=== PATIENT | female | born 1960 ===

== ENCOUNTER → 2020-10-14 11:17 | Outpatient (CLI) | payer OTHER, SELFPAY ==
--- NOTE | 2020-10-14 | DI.MG.S_ITS ---
BILATERAL DIGITAL SCREENING MAMMOGRAM 3D/2D WITH CAD: 10/14/2020 CLINICAL: Routine screening. Family history of breast cancer. Comparison is made to exam dated: 04/23/2019 mammogram - [facility]. There are scattered fibroglandular elements in both breasts. Current study was also evaluated with a Computer Aided Detection (CAD) system. There is a possible new 0.5 cm oval equal density asymmetry in the right breast posterior depth inferior region seen on the mediolateral oblique view only. No other significant masses, calcifications, or other findings are seen in either breast. IMPRESSION: INCOMPLETE: NEEDS ADDITIONAL IMAGING EVALUATION The possible new 0.5 cm oval equal density asymmetry in the right breast is indeterminate. Additional views with possible ultrasound are recommended. This exam was interpreted at Station ID: [id number]. NOTE: For mammograms, a report in lay terms will be sent to the patient. Approximately 15% of breast malignancies will not be visualized mammographically. In the management of a palpable breast mass, a negative mammogram must not discourage biopsy of a clinically suspicious lesion. Electronically Signed By: Emmanuel urbano/lakisha:10/16/2020 08:51:23 letter sent: Additional Imaging Needed ACR BI-RADS Category 0: Incomplete [id number]
== END ==
PROVIDERS: Referring Provider Family Medicine; Visit Provider Family Medicine
DX: Z12.31 Encounter for screening mammogram for malignant neoplasm of breast (principal); Z80.3 Family history of malignant neoplasm of breast
CPT/HCPCS: 77063; 77067

== ENCOUNTER → 2020-10-31 14:19 | Outpatient (CLI) | payer OTHER, SELFPAY ==
--- NOTE | 2020-10-31 14:23 | DI.MG.S_ITS ---
UNILATERAL RIGHT DIGITAL DIAGNOSTIC MAMMOGRAM 3D/2D WITH ADDITIONAL VIEWS: 10/31/2020 CLINICAL: Additional evaluation requested from prior study. Comparison is made to exams dated: 10/14/2020 mammogram - [facility], 04/23/2019 mammogram - [facility], and 04/23/2019 mammogram - [facility] radiology. There are scattered fibroglandular elements in right breast. There is a possible 0.5 cm oval equal density asymmetry in the right breast posterior depth inferior region seen on the mediolateral oblique view only. This is not significantly changed. No other significant masses or calcifications are seen in the breast. IMPRESSION: INCOMPLETE: NEEDS ADDITIONAL IMAGING EVALUATION The possible 0.5 cm oval equal density asymmetry in the right breast is indeterminate. An ultrasound is recommended and is scheduled to immediately follow. This exam was interpreted at Station ID: [id number]. NOTE: For mammograms, a report in lay terms will be sent to the patient. Approximately 15% of breast malignancies will not be visualized mammographically. In the management of a palpable breast mass, a negative mammogram must not discourage biopsy of a clinically suspicious lesion. Electronically Signed By: Sean Camara M.D. jr/:10/31/2020 14:56:06 ACR BI-RADS Category 0: Incomplete [id number]
--- NOTE | 2020-10-31 14:24 | DI.US.S_ITS ---
LIMITED ULTRASOUND OF RIGHT BREAST: 10/31/2020 CLINICAL: Patient returns today to evaluate a focal asymmetry in the right breast. Comparison is made to exams dated: 10/31/2020 mammogram, 10/14/2020 mammogram - [facility], 04/23/2019 mammogram - [facility], 04/23/2019 mammogram - [facility] radiology, 03/04/2018 ultrasound, and 03/04/2018 mammogram - [facility]. Color flow and Doppler ultrasound of the right breast 6-7 o'clock region were performed. Anderson scale images of the real-time examination were reviewed. Cluster of simple and minimally complicated cysts in the right breast at the 6:00 position 6 cm from the nipple, consistent with the mammographic appearance. IMPRESSION: NEGATIVE There is no sonographic evidence of malignancy. Return to annual mammogram screening schedule is recommended. This exam was interpreted at Station ID: [id number]. Electronically Signed By: Sean Camara M.D. jr/:10/31/2020 15:38:12 letter sent: Normal Exam Ultrasound BI-RADS: 1 Negative
== END ==
PROVIDERS: PCP Family Medicine; Referring Provider Family Medicine; Visit Provider Family Medicine
DX: R92.8 Other abnormal and inconclusive findings on diagnostic imaging of breast (principal); N60.01 Solitary cyst of right breast
CPT/HCPCS: 76642; 77065; G0279

== ENCOUNTER 2021-05-20 06:29 | Emergency (ER) | payer OTHER, SELFPAY ==
[2021-05-20] VITALS (10 sets, daily range): BP systolic 129–159; BP diastolic 66–88; PULSE 96–113; RESP 15–29; TEMP 37.8; O2SAT 94–97; BMI 22.6
--- NOTE | 2021-05-20 07:32 | ED_ITS ---
HPI - Chest Pain General Chief Complaint: Chest Pain Stated Complaint: covid positive/coughing chills' Time Seen by Provider: 05/20/21 06:38 Source: patient Mode of arrival: Ambulatory Limitations: no limitations History of Present Illness HPI narrative: Patient is a 60-year-old female history of hypertension presen ting today with probable COVID. She is not vaccinated for COVID her is positive for COVID. His she has cough and body aches. She is having some chest discomfort. She is supposed to have a stress test tomorrow home. She was interested in the vaccine but convinced her otherwise. She has body aches and chest discomfort cough and congestion. Currently oxygen is 94-95% on room air. Her is here as well Related Data Previous Rx's Medication Instructions Recorded levofloxacin 750 mg tablet 750 mg PO DAILY 7 Days tab 05/20/21 Review of Systems Review of Systems Narrative: GENERAL: + fatigue,+ fever,+ body aches HEENT: Denies sinus pain, ear pain, sore throat, difficulty swallowing, neck pain RESPIRATORY: Cough congestion, see HPI CARDIOVASCULAR: Chest discomfort GASTROINTESTINAL: Denies nausea, vomiting, abdominal pain, diarrhea, constipation, melena. : Denies dysuria, frequency, incontinence, hematuria, urinary retention, flank pain. MUSCULOSKELETAL: Denies weakness, joint pain, or bony pain SKIN: No rash, no erythema, no pruritus NEUROLOGIC: Denies weakness, dizziness, headache, numbness, change in speech, confusion PSYCHIATRIC: No concerning psychosocial issues. 12 point review of systems is negative except for those stated above and HPI Patient History Social History Smoking Status: Never smoker Smoking Status: Never smoker alcohol intake frequency: 0-2 drinks per day Substance Use Type: does not use Exam Initial Vital Signs Initial Vital Signs: Vital Signs Pulse Rate 108 H 05/20/21 06:48 Respiratory Rate 16 05/20/21 06:48 Pulse Oximetry 95 05/20/21 06:48 GENERAL: Alert 60-year-old female appears to not feel well in no acute distress. HEENT: Head atraumatic,EOMI, pupils reactive, face symmetric, moist mucous membranes CARDIOVASCULAR: Regular slightly tachycardic no murmur RESPIRATORY: Breath sounds equal bilaterally, no wheezes rales or rhonchi. ABDOMEN: Soft, nontender. Normoactive bowel sounds all 4 quadrants. No guarding or rebound. EXTREMITIES: Normal range of motion, no clubbing or edema. Neurovascularly intact NEUROLOGICAL: Alert and oriented x4.Normal gait and speech. SKIN: Warm, dry, no laceration, no petechiae, no rashes or lesions. Course Orders Ordered: ED Orders 05/20/21 06:50 C-Reactive Protein Quant Stat Complete Blood Count AUTO DIFF Stat Comprehensive Metabolic Panel Stat D Dimer Stat Lactate (Lactic Acid) Stat Procalcitonin Stat Troponin & CK Cardiac Panel Stat 05/20/21 06:51 EKG-12 Lead Stat 05/20/21 07:33 XR chest 1V Stat 05/20/21 07:40 COVID19 - ADMIT ([employer]CHNICIAN swab/PCR) Stat 05/20/21 07:46 Blood Culture Stat 05/20/21 09:22 Urine Culture Stat Urine Microscopic Stat Discontinued Medications Sodium Chloride (Normal Saline 0.9%) 1,000 mls @ 125 mls/hr IV CONT CHALINO Last Admin: 05/20/21 08:54 Dose: 125 mls/hr Documented by: SANTINO Vital Signs Vital signs: Vital Signs - 8 hr 05/20/21 06:48 05/20/21 06:59 05/20/21 07:00 Temperature 100.0 F H Pulse Rate 108 H 113 H 101 H Respiratory Rate 16 18 17 Blood Pressure 159/88 H 141/76 H Pulse Oximetry 95 96 94 05/20/21 07:30 05/20/21 08:00 05/20/21 08:30 Temperature Pulse Rate 101 H 103 H 98 H Respiratory Rate 18 29 H 17 Blood Pressure 145/83 H 148/77 H 133/68 Pulse Oximetry 95 95 95 05/20/21 09:00 05/20/21 09:30 05/20/21 10:00 Temperature Pulse Rate 109 H 96 H 98 H Respiratory Rate 27 H 18 15 Blood Pressure 129/66 130/69 Pulse Oximetry 97 97 96 05/20/21 10:37 Temperature Pulse Rate 96 H Respiratory Rate 22 Blood Pressure 130/69 Pulse Oximetry 95 MDM - Chest Pain Lab Data Result diagrams: 05/20/21 06:50 05/20/21 06:50 Labs: Lab Results 05/20/21 05/20/21 05/20/21 Range/Units 06:50 06:50 06:50 WBC 3.4 L (4.5-11.0) X10^3/uL RBC 5.06 (4.0-5.2) X10^6/uL Hgb 14.1 (12.0-16.0) g/dL Hct 43.3 (36-46) % MCV 85.6 (80-100) fL MCH 27.9 (26-34) PG MCHC 32.6 (30-36) % RDW 14.6 (11.6-14.8) % Plt Count 169 (150-400) X10^3/uL Neut % (Auto) 46.8 L (50-75) % Lymph % (Auto) 39.2 (25-40) % Morehouse % (Auto) 13.1 (3-14) % Eos % (Auto) 0.2 L (2-4) % Baso % (Auto) 0.7 (0-2) % Neut # (Auto) 1600 (5374-5854) /uL Lymph # (Auto) 1300 (8199-5744) /uL Morehouse # (Auto) 500 (0-900) /uL Eos # (Auto) 0 (0-450) /uL Baso # (Auto) 0 (0-100) /uL D-Dimer 244 H (<230) ng/mL Sodium (137-145) mmol/L Potassium (3.4-5.1) mmol/L Chloride (98-107) mmol/L Carbon Dioxide (22-32) mmol/L BUN (7-17) mg/dL Creatinine (0.52-1.04) mg/dL Estimated GFR (>60) mL/min BUN/Creatinine Ratio (6-22) Glucose (80-110) mg/dL Lactate (0.7-2.1) mmol/L Calcium (8.4-10.2) mg/dL Total Bilirubin (0.2-1.3) mg/dL AST (14-36) IU/L ALT (<35) IU/L Alkaline Phosphatase (38-126) U/L Total Creatine Kinase (30-135) U/L CK-MB (CK-2) CK-MB (CK-2) Rel Index Troponin I (0.01-0.034) ng/mL C-Reactive Protein (<1.0) mg/dL Total Protein (6.3-8.2) g/dL Albumin (3.5-5.0) g/dL Globulin (1.7-4.1) g/dL Albumin/Globulin Ratio (1.0-2.8) Procalcitonin 14.3 H (<0.5) ng/mL Urine RBC (0-5/HPF) Urine WBC (0-5/HPF) Ur Squamous Epith Cells (0-5/HPF) Urine Bacteria (None) Ur Culture Indicated? SARS-CoV-2 (PCR) (Negative) 05/20/21 05/20/21 05/20/21 Range/Units 06:50 06:50 07:40 WBC (4.5-11.0) X10^3/uL RBC (4.0-5.2) X10^6/uL Hgb (12.0-16.0) g/dL Hct (36-46) % MCV (80-100) fL MCH (26-34) PG MCHC (30-36) % RDW (11.6-14.8) % Plt Count (150-400) X10^3/uL Neut % (Auto) (50-75) % Lymph % (Auto) (25-40) % Morehouse % (Auto) (3-14) % Eos % (Auto) (2-4) % Baso % (Auto) (0-2) % Neut # (Auto) (3929-5236) /uL Lymph # (Auto) (0199-7944) /uL Morehouse # (Auto) (0-900) /uL Eos # (Auto) (0-450) /uL Baso # (Auto) (0-100) /uL D-Dimer (<230) ng/mL Sodium 137 (137-145) mmol/L Potassium 3.8 (3.4-5.1) mmol/L Chloride 105 (98-107) mmol/L Carbon Dioxide 25 (22-32) mmol/L BUN 13 (7-17) mg/dL Creatinine 0.60 (0.52-1.04) mg/dL Estimated GFR > 60.0 (>60) mL/min BUN/Creatinine Ratio 21.7 (6-22) Glucose 95 (80-110) mg/dL Lactate 1.1 (0.7-2.1) mmol/L Calcium 9.6 (8.4-10.2) mg/dL Total Bilirubin 0.3 (0.2-1.3) mg/dL AST 70 H (14-36) IU/L ALT 88 H (<35) IU/L Alkaline Phosphatase 130 H (38-126) U/L Total Creatine Kinase 26 L (30-135) U/L CK-MB (CK-2) TNP CK-MB (CK-2) Rel Index TNP Troponin I < 0.012 (0.01-0.034) ng/mL C-Reactive Protein 0.7 (<1.0) mg/dL Total Protein 7.4 (6.3-8.2) g/dL Albumin 4.3 (3.5-5.0) g/dL Globulin 3.1 (1.7-4.1) g/dL Albumin/Globulin Ratio 1.4 (1.0-2.8) Procalcitonin (<0.5) ng/mL Urine RBC (0-5/HPF) Urine WBC (0-5/HPF) Ur Squamous Epith Cells (0-5/HPF) Urine Bacteria (None) Ur Culture Indicated? SARS-CoV-2 (PCR) Positive H (Negative) 05/20/21 Range/Units 09:22 WBC (4.5-11.0) X10^3/uL RBC (4.0-5.2) X10^6/uL Hgb (12.0-16.0) g/dL Hct (36-46) % MCV (80-100) fL MCH (26-34) PG MCHC (30-36) % RDW (11.6-14.8) % Plt Count (150-400) X10^3/uL Neut % (Auto) (50-75) % Lymph % (Auto) (25-40) % Morehouse % (Auto) (3-14) % Eos % (Auto) (2-4) % Baso % (Auto) (0-2) % Neut # (Auto) (2592-0903) /uL Lymph # (Auto) (1757-9666) /uL Morehouse # (Auto) (0-900) /uL Eos # (Auto) (0-450) /uL Baso # (Auto) (0-100) /uL D-Dimer (<230) ng/mL Sodium (137-145) mmol/L Potassium (3.4-5.1) mmol/L Chloride (98-107) mmol/L Carbon Dioxide (22-32) mmol/L BUN (7-17) mg/dL Creatinine (0.52-1.04) mg/dL Estimated GFR (>60) mL/min BUN/Creatinine Ratio (6-22) Glucose (80-110) mg/dL Lactate (0.7-2.1) mmol/L Calcium (8.4-10.2) mg/dL Total Bilirubin (0.2-1.3) mg/dL AST (14-36) IU/L ALT (<35) IU/L Alkaline Phosphatase (38-126) U/L Total Creatine Kinase (30-135) U/L CK-MB (CK-2) CK-MB (CK-2) Rel Index Troponin I (0.01-0.034) ng/mL C-Reactive Protein (<1.0) mg/dL Total Protein (6.3-8.2) g/dL Albumin (3.5-5.0) g/dL Globulin (1.7-4.1) g/dL Albumin/Globulin Ratio (1.0-2.8) Procalcitonin (<0.5) ng/mL Urine RBC 5-10/hpf H (0-5/HPF) Urine WBC 1-5/hpf (0-5/HPF) Ur Squamous Epith Cells 1-5 /hpf (0-5/HPF) Urine Bacteria Few (2-10) H (None) Ur Culture Indicated? Culture not indicate SARS-CoV-2 (PCR) (Negative) Urine Dip Bedside Urine Glucose Negative Bedside Urine Bilirubin - Negative Bedside Urine Ketone +++ 80 Urine Specific Surfside 1.030 Bedside Urine Occult Blood ++ Bedside Urine pH 6.0 Bedside Urine Protein - Negative Bedside Urine Urobilinogen - Negative Bedside Urine Nitrite - Negative Bedside Urine Leukocytes - Negative Esterase Imaging Data Chest x-ray: Radiologist's Impression: PROCEDURE:? XR CHEST 1V ? INDICATIONS:? COVID ? TECHNIQUE:? One view of the chest was acquired.? ? COMPARISON:? None. ? FINDINGS:? ? Surgical changes and devices:? None.? ? Lungs and pleura:? On this semiupright portable chest examination, no large pneumothorax or large pleural effusions are seen.? Streaky, interstitial type opacities can be seen at the lung bases. ? Mediastinum:? Mediastinal contours appear normal.? Heart size is normal.? ? Bones and chest wall:? No suspicious bony lesions.? Overlying soft tissues appear unremarkable.? ? ? IMPRESSION:? These imaging findings are most compatible with atelectasis at the lung bases.? However, differential diagnosis would include viral pneumonia in this patient a given history of COVID. ? If clinically appropriate, a short-term followup chest series (with PA and lateral views) performed in deep inspiration is suggested for further evaluation.? ? ? Dictated by: Hussein Watts M.D. on 05/20/2021 at 7:1 ECG Data Interpretation: Normal sinus rhythm Rate 103 p.r. interval 138 QRS 88 QTC 4 before Q-wave noted in lead [address] changes no priors to compare MDM Narrative Medical decision making narrative: Patient is a 60-year-old female appears well but can not tell that she does not quite feel well. She has had intermittent episodes of tachycardia. She has an elevated procalcitonin of 14. Blood cultures are pending. Initially got blood work was missed labeled because her is here as well for COVID however it seems to be appropriate, some of his labs were rechecked. She does have risk factor of hypertension and may decompensate. I arranged for outpatient monoclonal antibody for her. However because of her significantly elevated procalcitonin I have started her on Levaquin. Discussed with her home monitoring and when to return to the emergency department. At this time she does not meet admission criteria she is not requiring oxygen. Discharge Plan Departure Patient Disposition: Home Clinical Impression: COVID-19, UTI (urinary tract infection) Instructions: Urinary Tract Infection, DI for Urinary Tract Infection (UTI) Activity Restrictions/Additional Instructions: *You have been diagnosed with COVID and UTI *What to do: At this time you have been diagnosed with COVID-19. However it also appears that has a bacterial infection probably a bladder infection. Will be starting on antibiotics for the bladder infection. COVID does not need any antibiotics. we will Call you in 2-3 days only if blood cultures are positive I have faxed in order for you to receive monoclonal antibody treatment with infusion solution there information is below [address] [place] [address], [facility], phone number [phone] -please follow COVID instructions below. Monitor oxygen regularly at home. Oxygen level should be greater than 90% *Continue to take medications as directed Tylenol 1000 mg every 6 hours if needed for body aches pain in feet *Follow up with your primary care provider in 2-3 days *Return to ER if you should have oxygen less than 90%, increased shortness of breath, inability to tolerate fluids any new, worsening or concerning symptoms * if you have not yet been vaccinated is still recommended and encouraged that you do so once your infection has passed At home: -Monitor oxygen with pulse oximeter. -Wash hands frequently. -Stay isolated at home please follow the isolation instructions below. -Increase fluid intake. -you may take Tylenol as directed if needed for pain or fever Emergency warning signs for COVID-19: - Difficulty breathing or shortness of breath, oxygen less than 90% - Persistent pain or pressure in the chest - New confusion or inability to arouse - Bluish lips or face CDC Guidelines for home isolation: - Stay away from others - Limit contact with pets and animals: If you must care for a pet, wash your hands before and after interacting with them - Wear a mask while in public all places - Cover your mouth and nose with a tissue when you cough or sneeze. Dispose of tissues in a lined trash can and wash your hands immediately with soap and water for at least 20 seconds. If soap and water are not available, clean hands with alcohol-based hand gas desulfurizer that contains at least 60% alcohol. - Clean your hands often with soap and water for at least 20 seconds - Avoid touching your eyes, nose and mouth with unwashed hands - Do not share dishes, drinking glasses, cups, eating utensils, towels, or bedding with other people in your home. After using these items, wash them thoroughly with soap and water or put in the credit processor. - Clean high-touch surfaces in your isolation area (?sick room? and bathroom) every day; let a caregiver clean and disinfect high-touch surfaces in other areas of the home. Clean the area or item with soap and water or another detergent if it is dirty. Then, use a household disinfectant. Prescriptions: New levofloxacin 750 mg tablet 750 mg PO DAILY 7 Days RF: 0 Referrals: Phyllis Flores MD [Primary Care Provider] -
--- NOTE | 2021-05-20 07:33 | DI.RAD.S_ITS ---
PROCEDURE: XR CHEST 1V INDICATIONS: COVID TECHNIQUE: One view of the chest was acquired. COMPARISON: None. FINDINGS: Surgical changes and devices: None. Lungs and pleura: On this semiupright portable chest examination, no large pneumothorax or large pleural effusions are seen. Streaky, interstitial type opacities can be seen at the lung bases. Mediastinum: Mediastinal contours appear normal. Heart size is normal. Bones and chest wall: No suspicious bony lesions. Overlying soft tissues appear unremarkable. IMPRESSION: These imaging findings are most compatible with atelectasis at the lung bases. However, differential diagnosis would include viral pneumonia in this patient a given history of COVID. If clinically appropriate, a short-term followup chest series (with PA and lateral views) performed in deep inspiration is suggested for further evaluation. Dictated by: Hussein Watts M.D. on 05/20/2021 at 7:19 Approved by: Hussein Watts M.D. on 05/20/2021 at 7:21
[2021-05-20 07:43] LABS: Add Manual Diff / Slide Review NO; Basophils Absolute Auto 0 /uL (0-100); Basophils Percent Auto 0.7 % (0-2); Eosinophils Absolute Auto 0 /uL (0-450); Eosinophils Percent Auto 0.2 % (2-4); Hematocrit 43.3 % (36-46); Hemoglobin 14.1 g/dL (12.0-16.0); Lymphocytes Absolute Auto 1300 /uL (1100-4500); Lymphocytes Percent Auto 39.2 % (25-40); Mean Corpuscular HGB Conc 32.6 % (30-36); Mean Corpuscular Hemoglobin 27.9 PG (26-34); Mean Corpuscular Volume 85.6 fL (80-100); Monocytes Absolute Auto 500 /uL (0-900); Monocytes Percent Auto 13.1 % (3-14); Neutrophils Absolute Auto 1600 /uL (1500-7000); Neutrophils Percent Auto 46.8 % (50-75); Platelet Count 169 X10^3/uL (150-400); Red Blood Cell Count 5.06 X10^6/uL (4.0-5.2); Red Cell Distribution Width 14.6 % (11.6-14.8); White Blood Cell Count 3.4 X10^3/uL (4.5-11.0)
--- NOTE | 2021-05-20 08:01 | PC.NURSE ---
IV placed by overnight nurse
--- NOTE | 2021-05-20 08:02 | PC.NURSE ---
Patient complains of chest pressure that she stated she feels comes from breathing. Her lung sounds are distant. She was reluctant to take deep breathes due to not wanting to get winded Her O2 saturation in 96% on RA.
[2021-05-20 08:07] LABS: Lactate (Lactic Acid) 1.1 mmol/L (0.7-2.1)
[2021-05-20 08:09] LABS: Alanine Aminotransferase 88 IU/L (<35); Albumin 4.3 g/dL (3.5-5.0); Albumin Globulin Ratio 1.4 (1.0-2.8); Alkaline Phosphatase 130 U/L (38-126); Aspartate Aminotransferase 70 IU/L (14-36); BUN Creatinine Ratio 21.7 (6-22); Bilirubin Total 0.3 mg/dL (0.2-1.3); Blood Urea Nitrogen 13 mg/dL (7-17); C-Reactive Protein Quant 0.7 mg/dL (<1.0); Calcium 9.6 mg/dL (8.4-10.2); Carbon Dioxide 25 mmol/L (22-32); Chloride 105 mmol/L (98-107); Creatine Kinase 26 U/L (30-135); Estimated Glomerular Filt Rate > 60.0 mL/min (>60); Globulin 3.1 g/dL (1.7-4.1); Glucose 95 mg/dL (80-110); HEMOLYSIS < 15 (0-50); Potassium 3.8 mmol/L (3.4-5.1); Sodium 137 mmol/L (137-145); Total Protein 7.4 g/dL (6.3-8.2)
[2021-05-20 08:18] LABS: D Dimer 244 ng/mL (<230); Troponin I < 0.012 ng/mL (0.01-0.034)
[2021-05-20 08:23] LABS: Procalcitonin 14.3 ng/mL (<0.5)
[2021-05-20 08:45] LABS: COVID19 - ADMIT (NP swab/PCR) POSITIVE (Negative)
[2021-05-20] MEDS: SODIUM CHLORIDE 0.9% 1,000 ML 125 ML IV (08:54)
[2021-05-20 09:48] LABS: Bacteria Urine Few (2-10); RBC Urine 5-10/HPF (0-5/HPF); Squamous Epithelial Cell Urine 1-5 /HPF (0-5/HPF); WBC Urine 1-5/HPF (0-5/HPF)
== END 2021-05-20 10:39 | disposition home or self-care (01) ==
PROVIDERS: Emergency Provider Emergency Medicine; PCP Family Medicine
DX: U07.1 COVID-19 (principal); N39.0 Urinary tract infection, site not specified
CPT/HCPCS: 36415; 71045; 80053; 81003; 81015; 82550; 83605; 84145; 84484; 85025; 85379; 86140; 87040; 87086; 87635; 93005; 96360; 96361; 99284; C9803

== ENCOUNTER → 2022-02-19 13:44 | Outpatient (CLI) | payer OTHER, SELFPAY ==
--- NOTE | 2022-02-19 13:47 | DI.RAD.S_ITS ---
PROCEDURE: XR ABDOMEN MIN 2V INDICATIONS: CONSTIPATION TECHNIQUE: 2 views of the abdomen were acquired. COMPARISON: None. FINDINGS: Surgical changes and devices: None. Bowel: No pneumoperitoneum. The bowel gas pattern is normal. Moderate amount of stool in colon. Soft tissues: No masses; visualized solid organ contours appear normal in size. No suspicious abdominal calcifications. Bones: No suspicious bony abnormalities. Mild scoliosis and degenerative changes in lumbar spine. IMPRESSION: Moderate amount of stool in colon. Dictated by: Kiara Qureshi M.D. on 02/19/2022 at 17:38 Approved by: Kiara Qureshi M.D. on 02/20/2022 at 9:14
== END ==
PROVIDERS: PCP Nurse Practitioner Family; Referring Provider Internal Medicine Gastroenterology; Visit Provider Internal Medicine Gastroenterology
DX: K59.00 Constipation, unspecified (principal)
CPT/HCPCS: 74019

== ENCOUNTER → 2022-05-03 09:33 | Outpatient (CLI) | payer OTHER, SELFPAY ==
[2022-05-03 10:57] LABS: COVID19 -Nasal RAPID Negative (Negative)
== END ==
PROVIDERS: PCP Nurse Practitioner Family; Visit Provider Surgery
DX: Z01.812 Encounter for preprocedural laboratory examination (principal); Z20.822 Contact with and (suspected) exposure to COVID-19
CPT/HCPCS: 87635; C9803

== ENCOUNTER 2022-05-06 06:46 | Day surgery (SDC) | payer OTHER, SELFPAY ==
[2022-05-06 07:21] VITALS: BP 138/79; PULSE 75; RESP 16; TEMP 35.7; O2SAT 99; BMI 24.6
--- NOTE | 2022-05-06 07:51 | PM.HP.1 ---
History of Present Illness History of Present Illness Date Patient Seen: 05/06/22 Time Patient Seen: 08:00 Chief complaint: SDC Narrative: I reviewed my recent office note. Refractory reflux. No significant changes. She has 2-3 bowel movements per week right now. She is down to pantoprazole once daily. Patient History Medical History GERD (gastroesophageal reflux disease) HTN (hypertension) Family & Social History Social History: household members spouse Tobacco & Substance use: Smoking Status Never smoker alcohol intake frequency 0-2 drinks per day Substance Use Type does not use Meds Home Medications and Allergies Home Medications Medication Instructions Recorded Confirmed Type amlodipine 5 mg tablet (Norvasc) 5 mg PO DAILY 05/06/22 05/06/22 History metoprolol succinate 25 mg 25 mg PO DAILY 05/06/22 05/06/22 History tablet,extended release 24 hr pantoprazole 40 mg tablet,delayed 40 mg PO DAILY 05/06/22 05/06/22 History release Allergies Allergy/AdvReac Type Severity Reaction Status Date / Time No Known Drug Allergies Allergy Verified 05/06/22 07:19 Review of Systems Review of Systems ROS: Yes All systems reviewed with the patient and are negative except as otherwise documented Exam Vital Signs (past 8 hours): - 05/06/22 07:21 Temperature 96.2 F L Pulse Rate 75 Respiratory Rate 16 Blood Pressure 138/79 Pulse Oximetry 99 Oxygen Delivery Method Room Air Oxygen Delivery Method Room Air Const General: cooperative HENMT Head: normal to inspection Eyes General: appearance normal, both eyes and all related structures Neck Neck: normal visual inspection Chest Chest: normal inspection of the chest Resp Effort & Inspection: normal respiratory effort Cardio Rate: regular rate GI Inspection: normal to inspection Skin General: no rashes or lesions noted Neuro General: patient alert and patient awake Extrem General: normal to inspection and no pedal edema Psych Appearance: grossly normal Assessment & Plan Assessment & Plan narrative: 61-year-old female with refractory reflux. EGD is pursued today. Time Spent With Patient Critical Care time: I spent a total of [] minutes of critical care time on this patient's care today; this time is exclusive of procedural time.
[2022-05-06] MEDS: SODIUM CHLORIDE 0.9% 1,000 ML 100 ML IV (07:57)
--- NOTE | 2022-05-06 08:01 | PM.PREOP ---
Pre-operative Note COVID-19 COVID-19 status: Negative Result date/Date tested (Pos, Neg/Pending): 05/03/22 Criteria for continued procedure: Possibility delay results in more complex future surgery or treatment Interval Note History & Physical reviewed/Exam performed by Physician: Yes Changes to H&P: No ASA Class (for procedural sedation): II
--- NOTE | 2022-05-06 08:13 | PM.OP.EGD ---
Operative Date/Time/Diagnoses Date of procedure: 05/06/22 Time of procedure: 08:13 Pre-op diagnosis: Refractory GERD Post-op diagnosis: same Procedure & Clinicians Study performed: EGD Same procedure as scheduled: Yes Indications: Refractory GERD Surgeon: Joe Mckinney Procedure Notes SCOAP/Timeout: Done Procedure in detail: After the risks and benefits were explained, written and verbal informed consent was obtained. The patient was brought into the procedure room and placed into the left lateral decubitus position. Conscious sedation medication was applied as per nursing documentation. The scope was introduced into the mouth through the bite block and advanced under direct visualization to the 2nd portion of the duodenum. The scope was slowly withdrawn carefully examining the mucosa for any defects or lesions. Retroflexed views were accomplished in the stomach. The stomach was decompressed, the scope was then removed from the patient who tolerated the procedure well. Sedation minutes: 7 Specimen(s): none sent Complications: none Impression: 1. Duodenum: This was visually normal from the bulb through the 2nd portion. 2. Stomach: No ulcers no outlet obstruction no mass lesions. Retroflexed views of the LES disclosed sliding hiatal hernia. There was a minimal gastropathy appreciated and I was about to try to take a biopsy for exclusion of H pylori but the patient went into laryngospasm from a reflux event during the procedure. In order to support her airway the scope was removed to allow the patient recovery. After the patient's sats normalized, I did not feel it was worth the risk of going back down for H pylori biopsies. 3. Esophagus: The squamocolumnar junction correlated with the top of the gastric folds. GEJ was at 34 cm from incisors and the diaphragmatic pinchcock at approximately 36 cm from the incisors. The patient had LA grade B erosive esophagitis. The remainder of the esophagus was unremarkable. Endoscopic diagnosis 1. Small sliding hiatal hernia 2. LA grade B erosive esophagitis Post-procedure Plan for aftercare: 1. Increase pantoprazole back up to 40 mg twice daily. 2. Daily MiraLax. 3. Follow up GI clinic 8 weeks 4. If symptoms persist despite b.i.d. pantoprazole, esophageal pH and manometry will be indicated Disposition: PACU
[2022-05-06 08:19] VITALS: BP 114/65; PULSE 90; RESP 16; TEMP 36.3; O2SAT 96
[2022-05-06 08:24] VITALS: BP 127/83; PULSE 91; RESP 16; O2SAT 96
--- NOTE | 2022-05-06 08:27 | SUR.PHASEI ---
Dr. Og into see pt. and talk to her. Pt awake and listening to him.
[2022-05-06 08:30] VITALS: BP 121/73; PULSE 79; RESP 16; O2SAT 97
[2022-05-06 08:33] VITALS: BP 117/75; PULSE 78; RESP 15; TEMP 36.2; O2SAT 98
--- NOTE | 2022-05-06 08:43 | SUR.PHASEI ---
Report given to Shandra Marie RN .
--- NOTE | 2022-05-06 08:52 | SUR.PHASEII ---
discharge instructions given to patient by Trinh Camargo RN. meets criteria for discharge. wide awake and alert. Denies pain or nausea.Has personal belongings and instructions with her. Denied further questions on instructions. Discharged to home to spouse by w/chair by volunteer.
== END 2022-05-06 08:52 | disposition home or self-care (01) ==
PROVIDERS: PCP Nurse Practitioner Family; Referring Provider Internal Medicine Gastroenterology; Visit Provider Internal Medicine Gastroenterology
PROC: 0DJ08ZZ Inspection of Upper Intestinal Tract, Via Natural or Artificial Opening Endoscopic (ICD-10-PCS; CPT 43235; principal; 2022-05-06 08:00)
DX: K21.00 Gastro-esophageal reflux disease with esophagitis, without bleeding (principal); I10 Essential (primary) hypertension; K44.9 Diaphragmatic hernia without obstruction or gangrene
CPT/HCPCS: 43235; J2704; J3010

== ENCOUNTER → 2023-03-28 09:44 | Outpatient (CLI) | payer OTHER, SELFPAY | PROVIDERS: PCP Nurse Practitioner Family; Referring Provider Internal Medicine; Visit Provider Internal Medicine | DX: R06.02 Shortness of breath (principal) | CPT/HCPCS: 94060; 94726; 94729 ==

== ENCOUNTER → 2023-05-27 12:41 | Outpatient (CLI) | payer OTHER, SELFPAY ==
--- NOTE | 2023-05-27 | DI.CT.S_ITS ---
PROCEDURE: CT CHEST HIGH RESOLUTION INDICATIONS: Shortness of breath TECHNIQUE: Noncontrast 1.0 and 5.0 mm thick contiguous axial sections from the pulmonary apex to the posterior costophrenic angles, with 7 mm thick coronal and sagittal MIP reformats. 1 mm thick dynamic expiratory images acquired through the upper, mid, and lower lungs. 1.0 mm thick axial sections acquired from the georgi to the posterior costophrenic angles in the prone end-inspiration position. For radiation dose reduction, the following was used: automated exposure control, adjustment of mA and/or kV according to patient size. COMPARISON: [facility], [facility] SCREENING MAMMO BI, 10/14/2020, 11:53. FINDINGS: Image quality: Excellent. Lungs: No mass. A few small pulmonary nodules measuring at 0.4 cm or less. For example right lower lobe 0.4 cm, (2/129). Dependent ground-glass opacity. Mild streaky opacity. These findings decrease on the prone sequence. No consolidative opacity. The airways are clear. No air trapping. Pleura: No pleural effusions or pneumothorax. Mediastinum: Heart size is normal. No pericardial effusion. Thoracic aorta and central pulmonary arteries are normal in size. Esophagus is normal in caliber. Small hiatal hernia. Bones and chest wall: No suspicious bony lesions. No vertebral body compression fractures. Nodule in the inferior and slightly lateral to the nipple breast measuring 1.1 cm, (3/38). Abdomen: Visualized upper abdominal solid organs and bowel loops appear normal. IMPRESSION: 1. Mild dependent atelectasis which improves on the prone sequence. 2. A few pulmonary nodules measuring at 0.4 cm or less. 3. Incidental nodule in inferior left breast measuring 1.1 cm. -Recommend diagnostic mammogram and possible ultrasound for further evaluation. Dictated by: Ananda Pyle M.D. on 05/27/2023 at 19:05 Approved by: Ananda Pyle M.D. on 05/27/2023 at 19:15
== END ==
PROVIDERS: PCP Nurse Practitioner Family; Referring Provider Internal Medicine; Visit Provider Internal Medicine
DX: J98.11 Atelectasis (principal); R91.8 Other nonspecific abnormal finding of lung field; N63.20 Unspecified lump in the left breast, unspecified quadrant; R06.02 Shortness of breath
CPT/HCPCS: 71250

== ENCOUNTER → 2023-07-15 11:58 | Outpatient (CLI) | payer OTHER, SELFPAY ==
--- NOTE | 2023-07-15 | DI.RAD.S_ITS ---
PROCEDURE: XR ACUTE ABDOMEN SERIES INDICATIONS: CONSTIPATION TECHNIQUE: One view chest and two views of the abdomen were acquired. COMPARISON: None. FINDINGS: Surgical changes and devices: None. Chest: Minimal streaky opacity in the lower lobes. Likely scarring or atelectasis. No consolidation. Heart size is normal. No pleural effusions. No pneumoperitoneum. Abdomen: Prominent stool in the colon and rectum. No dilated loops of bowel identified. No suspicious calcifications. Visualized solid organ contours appear normal. Bones: No suspicious bony lesions. IMPRESSION: No acute cardiopulmonary abnormality. Nonobstructive bowel gas pattern. Prominent stool in the colon and rectum. This could be seen in constipation. Dictated by: Ananda Pyle M.D. on 07/15/2023 at 16:22 Approved by: Ananda Pyle M.D. on 07/15/2023 at 16:24
== END ==
PROVIDERS: PCP Nurse Practitioner Family; Referring Provider Internal Medicine Gastroenterology; Visit Provider Internal Medicine Gastroenterology
DX: K59.00 Constipation, unspecified (principal)
CPT/HCPCS: 74022